=== PATIENT | female | born 1995 | race Caucasian/White ===

== ENCOUNTER 2023-08-18 18:22 | Emergency (ER) | payer OTHER ==
[~2023-08-18] VITALS: Ht 165.1 cm; Wt 74.8 kg
[~2023-08-18 18:22] MED LIST: FLUT1DIS5 INH; LEVA15HF5 INH
[2023-08-18 18:35] VITALS: BP_SYST 129; PULSE 103; RESP 19; TEMP 98.5; O2SAT 95
[2023-08-18] MEDS: NACL 0.9% 1,000 ML IV ONE (19:49)
[2023-08-18] MEDS: LORazepam 2 MG/ML VIAL IVP ONE (19:50)
[2023-08-18] MEDS: METOCLOPRAMIDE HCL 10 MG/2 ML VIAL IVP ONE (19:51)
[2023-08-18] MEDS: KETOROLAC TROMETHAMINE 15 MG VIAL IVP ONE (19:52)
[2023-08-18 20:14] LABS: BASOPHILS % (AUTO) 0.3 % (0.0-2.0); EOSINOPHILS # (AUTO) 0.1 K/uL (0.0-0.4); EOSINOPHILS % (AUTO) 0.8 % (0.0-4.0); HEMATOCRIT 42.2 % (36-48); HEMOGLOBIN 14.1 g/dL (12.0-16.0); LYMPHOCYTES # (AUTO) 1.6 K/uL (1.0-5.5); LYMPHOCYTES % (AUTO) 11.4 % (20.5-51.5); MEAN CORPUSCULAR HEMOGLOBIN 28 pg (27-31); MEAN CORPUSCULAR HGB CONC 34 % (32-36); MEAN CORPUSCULAR VOLUME 82 fL (79.0-98.0); MONOCYTES # (AUTO) 0.8 K/uL (0.0-1.0); NEUTROPHILS # (AUTO) 11.3 K/uL (1.8-7.7); NEUTROPHILS % (AUTO) 81.5 % (40.0-70.0); PLATELET COUNT (AUTO) 411 K/uL (130-430); RED BLOOD CELL COUNT(AUTO) 5.13 MIL/uL (4.2-6.2); RED CELL DISTRIBUTION WIDTH 14.5 % (9.0-15.0); WHITE BLOOD COUNT (AUTO) 13.9 K/uL (4.8-10.8)
[2023-08-18 20:31] LABS: CALCIUM 9.2 mg/dL (8.4-11.0); CREATININE 0.73 mg/dL (0.55-1.30); POTASSIUM 3.3 mmol/L (3.5-5.1)
[2023-08-18 20:36] LABS: ALBUMIN 3.7 g/dL (3.4-4.8); BILIRUBIN,DIRECT 0.1 mg/dL (0.0-0.3); TOTAL BILIRUBIN 0.3 mg/dL (0.0-1.0); TOTAL PROTEIN, SERUM 8.7 g/dL (6.4-8.3)
[2023-08-18 21:06] LABS: BILIRUBIN,URINE 1+ (NEGATIVE); BLOOD, URINE 3+ (NEGATIVE); CLARITY/URINE CLOUDY (CLEAR); COLOR,URINE YELLOW (YELLOW); GLUCOSE,URINE NEGATIVE (NEGATIVE); KETONES,URINE 3+ (NEGATIVE); LEUKOCYTE ESTERASE ,URINE NEGATIVE (NEGATIVE); NITRITE, URINE NEGATIVE (NEGATIVE); PROTEIN URINE TRACE (NEGATIVE); UROBILINOGEN,URINE 0.2 (0.2-1.0)
[2023-08-18 21:35] LABS: BACTERIA,URINE MODERATE /HPF (None Seen); WBC,URINE 0-3 /HPF (0-3)
[2023-08-18 21:44] LABS: BARBITURATE, URINE NEGATIVE (NEG <=200); BENZODIAZEPINE, URINE NEGATIVE (NEG <=150); CANNABINOID, URINE NEGATIVE (NEG <=50); COCAINE, URINE NEGATIVE (NEG <=150); METHAMPHETAMINES SCREEN,URINE NEGATIVE (NEG <=500); OPIATE, URINE NEGATIVE (NEG <=100); PHENCYCLIDINE SCREEN,URINE NEGATIVE (NEG <=25); UR TRICYCLIC ANTIDEPRESSANTS NEGATIVE (NEG <=300); URINE AMPHETAMINE NEGATIVE (NEG <=500); URINE METHADONE NEGATIVE (NEG <=200); URINE OXYCODONE SCREEN NEGATIVE (NEG <=100)
[2023-08-18] MEDS ORDERED: ONDA-8 TL (22:22)
[2023-08-18] MEDS: ONDANSETRON HCL 4 MG/2 ML VIAL IVP ONE (22:25)
[2023-08-18 22:35] VITALS: BP_SYST 120; PULSE 78; RESP 18; TEMP 98.4; O2SAT 95
== END 2023-08-18 22:35 | disposition home or self-care (01) ==
LOC: SED 18:22
DX: R11.2 Nausea with vomiting, unspecified (principal); R10.13 Epigastric pain; J45.909 Unspecified asthma, uncomplicated; Z79.899 Other long term (current) drug therapy
CPT/HCPCS: 99284; 96374; 96375; 80307; 80076; 80048; 83690; 85025; 87086; 36415; 81025; 81000; 81001; 81015; J1885; J2060; J2765; J2405